=== PATIENT | female | born 1960 | race Caucasian/White ===

== ENCOUNTER 2019-03-05 21:37 | Inpatient (IN) | payer MEDICARE, MEDICAID ==
[~2019-03-05] VITALS: Ht 170.2 cm; Wt 118.2 kg
[2019-03-05] MEDS ORDERED: ondansetron/PF 4mg/2ml inj IV ONE (22:15)
[2019-03-05] MEDS ORDERED: normal saline 1000ML IV soln IVB ONE ×2 (22:15→23:20)
[2019-03-05] MEDS: morphine 4 MG/ML inj SYRINge IV PRN ×2 (22:23→23:09)
[2019-03-05 22:32] LABS: BASOPHILS # (AUTO) 0.1 X10'3 (0-0.2); BASOPHILS % (AUTO) 0.8 % (0-1); EOSINOPHILS # (AUTO) 0.1 X10'3 (0-0.9); EOSINOPHILS % (AUTO) 0.9 % (0-6); HEMATOCRIT 42.6 % (35.0-45.0); HEMOGLOBIN 14.4 g/dl (12.0-16.0); LYMPHOCYTES % (AUTO) 21.3 % (21-51); MEAN CORPUSCULAR HEMOGLOBIN 31.6 PG (27.0-31.0); MEAN CORPUSCULAR HGB CONC 33.9 g/dL (33.0-36.5); MEAN CORPUSCULAR VOLUME 93.2 FL (78-98); MEAN PLATELET VOLUME 8.5 FL (7.4-10.4); MONOCYTES % (AUTO) 7.3 % (2-12); NEUTROPHILS # (AUTO) 9.8 X10'3 (1.8-7.7); NEUTROPHILS % (AUTO) 69.7 % (42-75); PLATELET COUNT 309 X10'3 (140-440); RED BLOOD COUNT 4.56 X10'6 (4.20-5.60); RED CELL DISTRIBUTION WIDTH 14.6 % (11.5-14.5)
[2019-03-05 22:46] LABS: ALANINE AMINOTRANSFERASE 72 U/L (12-78); ALBUMIN 4.2 G/DL (3.4-5.0); ALBUMIN/GLOBULIN RATIO 1.3 (1.1-1.5); ALKALINE PHOSPHATASE 98 IU/L (46-116); ANION GAP 14 (8-16); ASPARTATE AMINO TRANSFERASE 30 U/L (10-37); BILIRUBIN,TOTAL 0.8 MG/DL (0.1-1.0); BLOOD UREA NITROGEN 10 MG/DL (7-18); CALCIUM 9.3 MG/DL (8.5-10.1); CHLORIDE 99 MMOL/L (99-107); CREATININE 0.77 MG/DL (0.40-0.90); GLUCOSE 114 MG/DL (70-104); LIPASE 622 U/L (73-393); POTASSIUM 3.6 MMOL/L (3.5-5.1); SODIUM 136 MMOL/L (135-145); TOTAL CARBON DIOXIDE 22.6 MMOL/L (24-32); TOTAL PROTEIN 7.4 G/DL (6.4-8.2); eGFR 76 ML/MIN
[2019-03-05] MEDS ORDERED: HYDROmorphone 1 mg/ml syringe IV ONE (23:20)
[2019-03-06 00:39] LABS: CLARITY,URINE CLEAR (Clear); COLOR,URINE YELLOW (Yellow); GLUCOSE, URINE NEGATIVE (Neg); KETONES,URINE NEGATIVE (Neg); LEUKOCYTE ESTERASE ,URINE NEGATIVE (Neg); NITRITES, URINE NEGATIVE (Neg); OCCULT BLOOD,URINE NEGATIVE (Neg); PROTEIN,URINE NEGATIVE (Neg); UROBILINOGEN,URINE 0.2 E.U/dL (0.2-1.0)
[2019-03-06 00:46] LABS: UA COLLECTION TYPE CLN CATCH MIDSTREAM
[2019-03-06] MEDS ORDERED: acetaminophen 325mg tablet PO PRN (00:50)
[2019-03-06] MEDS ORDERED: magnesium hydroxide 30ml (MOM) UD suspension PO PRN (00:50)
[2019-03-06] MEDS ORDERED: HYDROcodone/acetaminophen 5mg/325mg tablet PO PRN (00:50)
[2019-03-06] MEDS ORDERED: mag hydrox/Alum hydrox/simeth 30ml oral suspension PO PRN (00:50)
[2019-03-06] MEDS: HYDROcodone/acetaminophen 10/325mg tab PO PRN ×2 (01:50→22:56)
[2019-03-06 02:00] VITALS: BP 157/85
--- NOTE | 2019-03-06 02:00 | NUR ---
Patient arrived to floor. Walked to bed from wheelchair ad jeannine. Pt c/o 06/24 pain. Daughter at bedside. VSS.
[2019-03-06] MEDS ORDERED: OMEP40CA37 PO (02:40)
[2019-03-06] MEDS ORDERED: MELO-102 PO (02:40)
[2019-03-06] MEDS ORDERED: METH2.5T PO (02:40)
[2019-03-06] MEDS ORDERED: ACYC200C PO (02:40)
[2019-03-06] MEDS ORDERED: HYDR200T84 PO (02:40)
--- NOTE | 2019-03-06 02:41 | NUR ---
Home medications. Patient takes several home medications to which she is unaware of the dose. Patient will have family provide dose information tomorrow morning. Medications include: hydroxychloroquin BID, gabapentin HS, Amytriptiline HS, Duloxetine daily, hydrochlorthiazide daily, bioten vitamin D daily Patient is visiting from [place] and will have son provide information to complete med reconciliation.
[2019-03-06] MEDS: dextrose 5%-1/2 normal saline 1,000 ML IV SCH ×3 (03:03→20:22)
[2019-03-06] MEDS: HYDROmorphone inj. 0.5 MG/0.5 ML DISP.SYRIN IV PRN ×2 (03:05→07:30)
--- NOTE | 2019-03-06 06:09 | NUR ---
Patient in room . I have received report from BRENNA Burgos and had the opportunity to ask questions and assume patient care.
--- NOTE | 2019-03-06 06:09 | NUR ---
Problems reprioritized. Patient report given, questions answered & plan of care reviewed with BRENNA Bernal.
[2019-03-06 07:23] VITALS: BP 126/69
[2019-03-06] MEDS: enoxaparin 40mg/0.4ml syringe SUBCUT SCH (07:33)
[2019-03-06] MEDS: ondansetron/PF 4mg/2ml inj IV PRN (09:26)
[2019-03-06 11:00] VITALS: BP 121/59
[2019-03-06] MEDS ORDERED: proCHLORperazine 10 MG/2 ml inj IV ONE (11:35)
[2019-03-06 14:05] LABS: BASOPHILS % (AUTO) 0.2 % (0-1); EOSINOPHILS % (AUTO) 0.2 % (0-6); HEMATOCRIT 39.3 % (35.0-45.0); LYMPHOCYTES # (AUTO) 1.3 X10'3 (1.1-4.8); LYMPHOCYTES % (AUTO) 7.3 % (21-51); MEAN CORPUSCULAR HEMOGLOBIN 31.4 PG (27.0-31.0); MEAN CORPUSCULAR VOLUME 95.3 FL (78-98); MEAN PLATELET VOLUME 8.8 FL (7.4-10.4); MONOCYTES # (AUTO) 1.4 X10'3 (0-0.9); MONOCYTES % (AUTO) 7.7 % (2-12); NEUTROPHILS % (AUTO) 84.6 % (42-75); PLATELET COUNT 246 X10'3 (140-440); RED BLOOD COUNT 4.12 X10'6 (4.20-5.60); WHITE BLOOD COUNT 17.7 X10'3 (4.5-11.0)
[2019-03-06 14:18] LABS: ALANINE AMINOTRANSFERASE 89 U/L (12-78); ALBUMIN 3.7 G/DL (3.4-5.0); ALBUMIN/GLOBULIN RATIO 1.2 (1.1-1.5); ALKALINE PHOSPHATASE 128 IU/L (46-116); ANION GAP 10 (8-16); ASPARTATE AMINO TRANSFERASE 46 U/L (10-37); BILIRUBIN,TOTAL 0.9 MG/DL (0.1-1.0); BLOOD UREA NITROGEN 9 MG/DL (7-18); BUN/CREATININE RATIO 12.3 (6.6-38.0); CALCIUM 8.7 MG/DL (8.5-10.1); CHLORIDE 102 MMOL/L (99-107); CREATININE 0.73 MG/DL (0.40-0.90); GLUCOSE 132 MG/DL (70-104); LIPASE 319 U/L (73-393); POTASSIUM 3.7 MMOL/L (3.5-5.1); SODIUM 137 MMOL/L (135-145); TOTAL CARBON DIOXIDE 25.3 MMOL/L (24-32); TOTAL PROTEIN 6.8 G/DL (6.4-8.2); eGFR 81 ML/MIN
[2019-03-06] MEDS ORDERED: temazepam 15mg capsule PO PRN (17:15)
--- NOTE | 2019-03-06 18:23 | NUR ---
Problems reprioritized. Patient report given, questions answered & plan of care reviewed with BRENNA Burgos and BRENNA Lopez.
[2019-03-06] MEDS: proCHLORperazine 10 MG/2 ml inj IV PRN (19:23)
[2019-03-06 20:00] VITALS: BP 148/80
[2019-03-06] MEDS: nystatin 15 GM powder TP SCH (20:23)
[2019-03-07] VITALS: BP 114/59
[2019-03-07] MEDS: proCHLORperazine 10 MG/2 ml inj IV PRN (02:48)
[2019-03-07] MEDS: HYDROmorphone inj. 0.5 MG/0.5 ML DISP.SYRIN IV PRN ×3 (03:11→11:12)
--- NOTE | 2019-03-07 04:18 | NUR ---
pt states pain tolerable and nausea gone.
[2019-03-07 05:41] LABS: ALANINE AMINOTRANSFERASE 73 U/L (12-78); ALBUMIN 3.4 G/DL (3.4-5.0); ALBUMIN/GLOBULIN RATIO 1.1 (1.1-1.5); ALKALINE PHOSPHATASE 109 IU/L (46-116); ANION GAP 8 (8-16); ASPARTATE AMINO TRANSFERASE 30 U/L (10-37); BILIRUBIN,TOTAL 0.8 MG/DL (0.1-1.0); BLOOD UREA NITROGEN 10 MG/DL (7-18); BUN/CREATININE RATIO 12.7 (6.6-38.0); CALCIUM 8.5 MG/DL (8.5-10.1); CHLORIDE 100 MMOL/L (99-107); CHOL/HDL RATIO 3.3 (0.00-4.99); CHOLESTEROL 176 MG/DL (0-200); CREATININE 0.79 MG/DL (0.40-0.90); GLUCOSE 119 MG/DL (70-104); HDL CHOLESTEROL 54 MG/DL (35-60); LDL CHOLESTEROL 108 MG/DL (50-100); SODIUM 136 MMOL/L (135-145); TOTAL CARBON DIOXIDE 28.2 MMOL/L (24-32); TOTAL PROTEIN 6.5 G/DL (6.4-8.2); TRIGLYCERIDES 74 MG/DL (20-135); eGFR 74 ML/MIN
--- NOTE | 2019-03-07 06:13 | NUR ---
Critical K+ received, 3.0. Called MD, received replacement orders.
[2019-03-07] MEDS ORDERED: magnesium 4gm in 100ml NS 100 ML IV PRN (06:15)
[2019-03-07] MEDS ORDERED: magnesium Cl slow-release 64mg tablet PO PRN (06:15)
[2019-03-07] MEDS ORDERED: potassium Cl 20 mEq SR tablet PO PRN ×2 (06:15)
[2019-03-07] MEDS ORDERED: potassium Cl 40MEQ/NS 500ml 500 ML IV PRN (06:15)
[2019-03-07] MEDS ORDERED: magnesium 2GM in 50ml NS 50 ML IV PRN (06:15)
[2019-03-07] MEDS: dextrose 5%-1/2 normal saline 1,000 ML IV SCH ×3 (06:46→23:26)
[2019-03-07 07:00] VITALS: BP 152/84
--- NOTE | 2019-03-07 07:00 | NUR ---
Problems reprioritized. Patient report given, questions answered & plan of care reviewed with BRENNA Mendez.
--- NOTE | 2019-03-07 07:09 | NUR ---
Patient in room [facility]. I have received report from Loretta Bettencourt RN and had the opportunity to ask questions and assume patient care.
[2019-03-07 07:11] LABS: MAGNESIUM 1.8 MG/DL (1.5-2.4)
[2019-03-07] MEDS: levoFLOXACIN-Levaquin 750MG/D5 150 ML IV SCH (07:15)
[2019-03-07] MEDS: enoxaparin 40mg/0.4ml syringe SUBCUT SCH (07:15)
[2019-03-07] MEDS: nystatin 15 GM powder TP SCH ×3 (07:26→20:22)
[2019-03-07] MEDS: potassium Cl 40MEQ/NS 500ml 500 ML IV PRN ×2 (09:21→14:49)
[2019-03-07 11:00] VITALS: BP 142/86
[2019-03-07] MEDS: HYDROcodone/acetaminophen 10/325mg tab PO PRN ×2 (13:20→17:26)
--- NOTE | 2019-03-07 16:05 | NUR ---
Called [facility] pharmacy to obtain list of patient's home medications, spoke to Jenifer. He said he will fax over the list of meds
[2019-03-07] MEDS ORDERED: AMIT50TA3 PO (16:39)
[2019-03-07] MEDS ORDERED: DULO60CA64 PO (16:39)
[2019-03-07] MEDS ORDERED: HYDR25TA4 PO (16:39)
[2019-03-07] MEDS ORDERED: GABA-532 PO (16:39)
[2019-03-07] MEDS: naproxen 500mg tablet PO SCH (17:47)
--- NOTE | 2019-03-07 18:29 | NUR ---
Problems reprioritized. Patient report given, questions answered & plan of care reviewed with Loretta Bettencourt RN.
[2019-03-07] MEDS: acyclovir 200 MG capsule PO SCH (19:27)
[2019-03-07] MEDS: hydroxychloroquine 200mg tablet PO SCH (19:27)
[2019-03-07] MEDS: lactobacillus rhamnosus 10,000 MMU CELLS/CAPSULE PO SCH (19:28)
[2019-03-07 20:00] VITALS: BP 135/83
[2019-03-07] MEDS ORDERED: gabapentin 300mg capsule PO SCH (21:00)
[2019-03-07] MEDS ORDERED: amitryptiline 50mg tablet PO SCH (21:00)
[2019-03-07 23:45] VITALS: BP 126/63
[2019-03-08] MEDS: HYDROcodone/acetaminophen 10/325mg tab PO PRN ×2 (04:11→09:10)
[2019-03-08 05:21] LABS: BASOPHILS % (AUTO) 0.3 % (0-1); EOSINOPHILS # (AUTO) 0.1 X10'3 (0-0.9); EOSINOPHILS % (AUTO) 1.1 % (0-6); HEMATOCRIT 38.7 % (35.0-45.0); HEMOGLOBIN 12.8 g/dl (12.0-16.0); LYMPHOCYTES # (AUTO) 2.2 X10'3 (1.1-4.8); LYMPHOCYTES % (AUTO) 19.6 % (21-51); MEAN CORPUSCULAR HEMOGLOBIN 31.5 PG (27.0-31.0); MEAN CORPUSCULAR HGB CONC 33.1 g/dL (33.0-36.5); MEAN CORPUSCULAR VOLUME 95.3 FL (78-98); MEAN PLATELET VOLUME 8.8 FL (7.4-10.4); MONOCYTES # (AUTO) 1.4 X10'3 (0-0.9); MONOCYTES % (AUTO) 11.9 % (2-12); NEUTROPHILS # (AUTO) 7.6 X10'3 (1.8-7.7); NEUTROPHILS % (AUTO) 67.1 % (42-75); PLATELET COUNT 265 X10'3 (140-440); RED BLOOD COUNT 4.06 X10'6 (4.20-5.60); RED CELL DISTRIBUTION WIDTH 15.1 % (11.5-14.5); WHITE BLOOD COUNT 11.3 X10'3 (4.5-11.0)
[2019-03-08 05:42] LABS: ALANINE AMINOTRANSFERASE 54 U/L (12-78); ALBUMIN 3.3 G/DL (3.4-5.0); ALBUMIN/GLOBULIN RATIO 1.1 (1.1-1.5); ALKALINE PHOSPHATASE 99 IU/L (46-116); ANION GAP 8 (8-16); ASPARTATE AMINO TRANSFERASE 17 U/L (10-37); BILIRUBIN,TOTAL 0.5 MG/DL (0.1-1.0); BLOOD UREA NITROGEN 8 MG/DL (7-18); BUN/CREATININE RATIO 10.5 (6.6-38.0); CALCIUM 8.9 MG/DL (8.5-10.1); CHLORIDE 105 MMOL/L (99-107); CREATININE 0.76 MG/DL (0.40-0.90); GLUCOSE 110 MG/DL (70-104); MAGNESIUM 1.8 MG/DL (1.5-2.4); POTASSIUM 3.5 MMOL/L (3.5-5.1); SODIUM 140 MMOL/L (135-145); TOTAL CARBON DIOXIDE 27.1 MMOL/L (24-32); TOTAL PROTEIN 6.4 G/DL (6.4-8.2); eGFR 78 ML/MIN
--- NOTE | 2019-03-08 06:33 | NUR ---
Problems reprioritized. Patient report given, questions answered & plan of care reviewed with BRENNA Mendez.
--- NOTE | 2019-03-08 06:48 | NUR ---
Patient in room [facility]. I have received report from Loretta Bettencourt RN and had the opportunity to ask questions and assume patient care.
[2019-03-08 07:00] VITALS: BP 126/71
[2019-03-08] MEDS: acyclovir 200 MG capsule PO SCH (07:13)
[2019-03-08] MEDS: hydroxychloroquine 200mg tablet PO SCH (07:13)
[2019-03-08] MEDS: lactobacillus rhamnosus 10,000 MMU CELLS/CAPSULE PO SCH (07:13)
[2019-03-08] MEDS: nystatin 15 GM powder TP SCH (07:15)
[2019-03-08] MEDS: enoxaparin 40mg/0.4ml syringe SUBCUT SCH (07:15)
[2019-03-08] MEDS ORDERED: pantoprazole 40mg Tablet.DR PO SCH (07:30)
[2019-03-08] MEDS: ondansetron/PF 4mg/2ml inj IV PRN (07:37)
[2019-03-08] MEDS: levoFLOXACIN-Levaquin 750MG/D5 150 ML IV SCH (07:38)
[2019-03-08] MEDS: naproxen 500mg tablet PO SCH (07:59)
[2019-03-08] MEDS ORDERED: HYDROchlorothiazide 25mg tablet PO SCH (08:00)
[2019-03-08] MEDS ORDERED: duloxetine 30mg CAPSULE.DR PO SCH (08:00)
[2019-03-08] MEDS ORDERED: NYSPWD TP (09:18)
[2019-03-08] MEDS ORDERED: LACT1CAP26 PO (09:18)
[2019-03-08] MEDS ORDERED: LEVO500T89 PO (09:18)
[2019-03-08] MEDS ORDERED: LIPA1CAP18 PO (09:18)
--- NOTE | 2019-03-08 10:05 | NUR ---
Patient stated that her daughter who will give her a ride is in the meeting and will not be available to picking crew supervisor patient until [address] Conroy also seen patient.
--- NOTE | 2019-03-08 11:10 | NUR ---
Discharge instructions given to patient, patient verbalized understanding of all instructions made. Peripheral IV catheter removed, tip intact. New prescriptions filled and delivered by [facility] pharmacy. Instructed patient to ensure she has all her belongings with her before leaving. Patient awaiting for her daughter to pick her up
--- NOTE | 2019-03-08 12:15 | NUR ---
Patient was discharged home accompanied by her daughter. New prescriptions filled and delivered by [facility] pharmacy.
== END 2019-03-08 12:13 | disposition home or self-care (01) | DRG 439 ==
LOC: ER 21:38 → CMPBEDREQ 03-06 01:56 → SUR 3N 03-06 07:18
PROVIDERS: ADMIT Internal Medicine; ATTEND Family Medicine
DX: K85.90 Acute pancreatitis without necrosis or infection, unspecified (principal); Z68.41 Body mass index [BMI] 40.0-44.9, adult; E87.6 Hypokalemia; F12.90 Cannabis use, unspecified, uncomplicated; G89.4 Chronic pain syndrome; K21.9 Gastro-esophageal reflux disease without esophagitis; L40.50 Arthropathic psoriasis, unspecified; M79.7 Fibromyalgia; M19.90 Unspecified osteoarthritis, unspecified site; E66.01 Morbid (severe) obesity due to excess calories; Z90.49 Acquired absence of other specified parts of digestive tract; Z79.899 Other long term (current) drug therapy
CPT/HCPCS: 36415; 71045; 74176; 80053; 80061; 81003; 83690; 83735; 84132; 85025; 85651; 87070; G0378; J0780; J1170; J1650; J1956; J2270; J2405; J3480; J8610